=== PATIENT | male | born 1995 | race Caucasian/White ===

== ENCOUNTER → 2017-02-11 | Outpatient (CLI) | payer OTHER ==
[~2017-02-11] MED LIST: ACET-1256 PO; CEPH500C PO; HYDR-5688 PO; LOSA100T65 PO
--- NOTE | 2017-02-11 09:06 | DIAGNOSTIC IMAGING REPORT ---
RIGHT ANKLE MIN 3 VIEWS CLINICAL HISTORY: Right ankle pain COMPARISON: None. DISCUSSION: There is a spur arising from the anterior aspect the tibial plafond and medial malleolus. No acute fractures are visualized. The ankle mortise appears intact. IMPRESSION: Chronic spurring. No acute fractures. Electronically signed by: Delfin Albarran M.D. 02/11/2017 9:05 AM Dictated Date/Time: 02/11/2017 9:03 AM
== END | disposition home or self-care (01) ==
LOC: C.RDSM 09:15
PROVIDERS: ATTEND Physician Assistant
DX: M25.571 Pain in right ankle and joints of right foot (principal)

== ENCOUNTER 2017-07-01 15:46 | Emergency (ER) | payer OTHER ==
[~2017-07-01] VITALS: Ht 177.8 cm; Wt 115.3 kg
[2017-07-01 15:49] VITALS: TEMP 36.9; Ht 177.8 cm; Wt 115.3 kg
[2017-07-01] MEDS ORDERED: ACET-1256 PO (16:18)
[2017-07-01] MEDS ORDERED: LOSA100T65 PO (16:18)
[2017-07-01 16:31] LABS: BASO % 0.1 %; BASO ABS # 0.01 K/uL (0-0.2); COMPLETE YES; EOS % 2.1 %; HEMATOCRIT 39.6 % (42-52); IG% 0.3 %; LYMPH % 7.1 %; LYMPH ABS # 1.01 K/uL (1.2-3.4); MEAN CELL VOLUME 79.8 fL (80-100); MEAN CORPUSCULAR HEMOGLOBIN 27.8 pg (25-34); MEAN CORPUSCULAR HGB CONC 34.8 g/dl (32-36); MEAN PLATELET VOLUME 9.6 fL (7.4-10.4); MONO % 12.6 %; NEUT % 77.8 %; PLATELET COUNT 332 K/uL (130-400); RED BLOOD COUNT 4.96 M/uL (4.7-6.1); WHITE BLOOD COUNT 14.17 K/uL (4.8-10.8)
--- NOTE | 2017-07-01 16:36 | DIAGNOSTIC IMAGING REPORT ---
RIGHT SHOULDER MIN 2 VIEWS ROUTINE CLINICAL HISTORY: right shoulder pain Right pain COMPARISON: None DISCUSSION: . Postoperative changes to the glenoid. No acute bony abnormality. Acromioclavicular joint is intact. There are no abnormal soft tissue calcifications. There is no evidence for soft tissue swelling. IMPRESSION: No acute process. Mild degenerative/potential postoperative change to the glenoid articular surface The above report was generated using voice recognition software. It may contain grammatical, syntax or spelling errors. Electronically signed by: Quinton Edmonds M.D. 07/01/2017 4:34 PM Dictated Date/Time: 07/01/2017 4:33 PM
[2017-07-01 16:48] LABS: BUN/CREATININE RATIO 12.7 (10-20); CALCIUM 8.7 mg/dl (8.5-10.1); CREATININE 1.1 mg/dl (0.60-1.40); POTASSIUM 3.8 mmol/L (3.5-5.1); URIC ACID 8.1 mg/dl (2.6-7.2)
[2017-07-01 16:49] LABS: C-REACTIVE PROTEIN 12.9 mg/dl (0-0.29)
--- NOTE | 2017-07-01 17:01 | EMERGENCY ROOM VISIT NOTE ---
History First contact with patient: 15:54 Chief Complaint: SHOULDER PAIN Stated Complaint: SHOULDER PAIN History of Present Illness The patient is a 21 year old male who presents to the Emergency Room with complaints of right shoulder pain which began 5 days ago. The patient states that he has had worsening shoulder pain over the past 5 days. The pain is worse with movement of the shoulder. He rates his discomfort a 9/10. He has a history of IgA nephropathy and has been told in the past that his uric acid levels are elevated and he could develop a gout in the future. He is unsure if he has had an episode of gout in the past. He states that he has had an episode of ankle swelling and redness, but was told by a explosive operator that this was not due to gout. He was prescribed colchicine and took this without relief when his pain began. The patient also reports that he has had a torn labrum in the right shoulder and had surgery in 2011. He did have another episode of similar symptoms a few years ago and had an MRI which showed tendinitis. He followed up with rheumatology regarding that and was told that he may need the shoulder drained if this occurred again. The patient denies any redness or warmth of the shoulder. He has decreased range of motion due to pain. He denies any fevers/chills, chest pain, shortness of breath or neck pain. He denies any other joint pain. Review of Systems A complete 10 point review of systems was reviewed with the patient with pertinent positives and negatives as per history of present illness. All else were negative. Social History Smoking Status: Never Smoker Current/Historical Medications Scheduled Cephalexin Monohydrate (Keflex), 500 MG PO QID Losartan Potassium (Cozaar), 100 MG PO DAILY Scheduled PRN Acetaminophen (Tylenol), 1,000 MG PO Q6H PRN for Pain Hydrocodone/Acetaminophen 5MG/325MG (Sanders 5MG/325MG), 1-2 TABLET PO Q4H PRN for Pain Physical Exam Vital Signs Date Time Temp Pulse Resp B/P (MAP) Pulse Ox O2 Delivery O2 Flow Rate FiO2 07/01/17 18:45 105 20 120/78 98 07/01/17 17:08 113 18 138/89 97 Room Air 07/01/17 15:49 36.9 128 18 134/79 97 Room Air Physical Exam VITALS: Vitals are noted on the nurse's note and reviewed by myself. Vital signs stable. GENERAL: This is a 21-year-old male, in no acute distress, nondiaphoretic, well- developed well-nourished. HEART: Regular rate and rhythm without murmurs gallops or rubs. LUNGS: Clear to auscultation bilaterally without wheezes, rales or rhonchi. MUSCULOSKELETAL: No deformity of the right shoulder. There is no erythema or warmth of the shoulder. There is no significant tenderness to palpation. There is decreased range of motion throughout secondary to patient discomfort. Full passive range of motion of the shoulder. NEURO: Patient was alert and oriented to person place and time. Medical Decision & Procedures ER Provider Diagnostic Interpretation: RIGHT SHOULDER MIN 2 VIEWS ROUTINE CLINICAL HISTORY: right shoulder pain Right pain COMPARISON: None DISCUSSION: . Postoperative changes to the glenoid. No acute bony abnormality. Acromioclavicular joint is intact. There are no abnormal soft tissue calcifications. There is no evidence for soft tissue swelling. IMPRESSION: No acute process. Mild degenerative/potential postoperative change to the glenoid articular surface Laboratory Results 07/01/17 16:20 Red Blood Count 4.96, Mean Corpuscular Volume 79.8, Mean Corpuscular Hemoglobin 27.8, Mean Corpuscular Hemoglobin Concent 34.8, Mean Platelet Volume 9.6, Neutrophils (%) (Auto) 77.8, Lymphocytes (%) (Auto) 7.1, Monocytes (%) (Auto) 12.6, Eosinophils (%) (Auto) 2.1, Basophils (%) (Auto) 0.1, Neutrophils # (Auto ) 11.03, Lymphocytes # (Auto) 1.01, Monocytes # (Auto) 1.78, Eosinophils # (Auto ) 0.30, Basophils # (Auto) 0.01 07/01/17 16:20 Test 07/01/17 16:20 White Blood Count 14.17 K/uL (4.8-10.8) Red Blood Count 4.96 M/uL (4.7-6.1) Hemoglobin 13.8 g/dL (14.0-18.0) Hematocrit 39.6 % (42-52) Mean Corpuscular Volume 79.8 fL (80-100) Mean Corpuscular Hemoglobin 27.8 pg (25-34) Mean Corpuscular Hemoglobin Concent 34.8 g/dl (32-36) Platelet Count 332 K/uL (130-400) Mean Platelet Volume 9.6 fL (7.4-10.4) Neutrophils (%) (Auto) 77.8 % Lymphocytes (%) (Auto) 7.1 % Monocytes (%) (Auto) 12.6 % Eosinophils (%) (Auto) 2.1 % Basophils (%) (Auto) 0.1 % Neutrophils # (Auto) 11.03 K/uL (1.4-6.5) Lymphocytes # (Auto) 1.01 K/uL (1.2-3.4) Monocytes # (Auto) 1.78 K/uL (0.11-0.59) Eosinophils # (Auto) 0.30 K/uL (0-0.5) Basophils # (Auto) 0.01 K/uL (0-0.2) RDW Standard Deviation 44.1 fL (36.4-46.3) RDW Coefficient of Variation 15.1 % (11.5-14.5) Immature Granulocyte % (Auto) 0.3 % Immature Granulocyte # (Auto) 0.04 K/uL (0.00-0.02) Erythrocyte Sedimentation Rate 67 mm/hr (0-14) Anion Gap 8.0 mmol/L (3-11) Est Creatinine Clear Calc Drug Dose 135.1 ml/min Estimated GFR () 110.6 Estimated GFR (Non- 95.5 BUN/Creatinine Ratio 12.7 (10-20) Uric Acid 8.1 mg/dl (2.6-7.2) Calcium Level 8.7 mg/dl (8.5-10.1) C-Reactive Protein 12.90 mg/dl (0-0.29) Medications Administered Medications (Trade) Dose Ordered Sig/Rylee Route Start Time Stop Time Status Last Admin Dose Admin Ceftriaxone Sodium (Rocephin Inj) 1 gm NOW STAT IV 07/01/17 17:44 07/01/17 17:45 DC 07/01/17 17:52 1 GM ED Course The patient was evaluated as above. Labs were drawn and IV access was obtained. Patient refused analgesics. Case was discussed with Dr. Quintanilla of orthopedics. He recommended giving the patient a dose of Rocephin and placing him on Keflex. He will follow-up with the patient in the office tomorrow. Patient was reevaluated and findings were discussed. 1 g Rocephin was ordered. Discharge instructions were reviewed with the patient. The patient verbalized understanding of my assessment and treatment plan and was discharged home in good condition. Medical Decision Differential diagnosis includes rotator cuff injury, tendinitis, gout, pseudogout, septic arthritis, among others. The patient is a 21-year-old male who presents today complaining of atraumatic right shoulder pain. The patient has a history of IgA nephropathy and has had apparent flareups of joint pain in the past. Labs were performed today and did show an elevated white blood cell count of 14,000. ESR was elevated at 67 and CRP elevated at 12.9. Creatinine was within normal limits. On exam, patient has significantly decreased range of motion but there is no erythema or warmth to suggest infection. Patient is afebrile. He is tachycardic, but feel this is likely secondary to pain. The patient declined any analgesics in the emergency department. Although there is no obvious evidence of a septic joint on exam, I am concerned due to the leukocytosis and elevated inflammatory markers. I spoke with Dr. Quintanilla of orthopedics, who recommended giving the patient a dose of Rocephin and placing him on Keflex and having him follow-up in the office tomorrow morning. I do feel this is a reasonable treatment plan. The patient does need further workup from orthopedics and may need aspiration of the joint for analysis. I had a lengthy discussion with both patient and his mother via telephone regarding the findings today and treatment plan. They both verbalized understanding of the assessment and treatment plan. Based on the patient's presentation and work up, I feel the patient is stable for outpatient treatment. The patient was educated to return to the emergency department for any worsening of their current condition or new/concerning symptoms. He will follow up with orthopedics tomorrow morning. The patient's case was reviewed with Dr. Ferraro, ED attending physician, who agreed with my assessment and treatment plan. Blood Pressure Screening: Patient was found to have a slightly elevated blood pressure due to circumstances. I do not believe that the patient requires hypertension monitoring. Medication reconciliation: I attest that I have personally reviewed the patient 's current medication list. Impression Primary Impression: Right shoulder pain Departure Information Dispostion Home / Self-Care Condition GOOD Prescriptions Hydrocodone/Acetaminophen 5MG/325MG (Sanders 5MG/325MG) Tab 1-2 TABLET PO Q4H Y for Pain, #12 TAB For Initial Treatment Prov: Amina Sanders PA-C 07/01/17 Cephalexin Monohydrate (Keflex) 500 Mg Cap 500 MG PO QID for 10 Days, #40 CAP Prov: Amina Sanders PA-C 07/01/17 Referrals No Doctor, Assigned (PCP) Leland Quintanilla, DO Patient Instructions My [facility] Additional Instructions You were prescribed Keflex to be taken 4 times daily as prescribed. This is an antibiotic. All antibiotics have the potential to cause diarrhea. Stop this medication and contact a medical provider if you were to develop any significant adverse side effects including: wheezing, shortness of breath, passing out, vomiting, or a diffuse rash. Always take antibiotics as directed and COMPLETE the ENTIRE course regardless of the improvement of your symptoms. You have been prescribed Sanders to be used for pain control. Take 1-2 tablets every 4-6 hours as needed for pain. This is a narcotic medication. You cannot drive or consume alcohol while on this medicine. This medicine should only be used for pain that cannot be controlled with [id number] pain medicines. You have been provided with the information for orthopedics. Call this number tomorrow morning at 8:00 AM to schedule follow-up. Let them know that you were seen in the emergency department and we spoke with Dr Quintanilla, who requested that you be seen tomorrow in the office. You may ask to speak with his ophthalmic medical assistant, Prerna. Return to the emergency department with any fevers, worsening pain, redness/ swelling or any other new/concerning symptoms. Problem Qualifiers Primary Impression: Right shoulder pain Chronicity: acute Qualified Codes: M25.511 - Pain in right shoulder
[2017-07-01] MEDS ORDERED: CEFTRIAXONE SOD INJ 1 GM ADDVIAL IV STA (17:44)
[2017-07-01] MEDS ORDERED: HYDR-5688 PO (18:16)
[2017-07-01] MEDS ORDERED: CEPH500C PO (18:16)
[2017-07-01 18:45] VITALS: BP 120/78; PULSE 105; O2SAT 98
== END 2017-07-01 18:46 | disposition home or self-care (01) ==
LOC: C.EDB 15:48
DX: M25.511 Pain in right shoulder (principal)

== ENCOUNTER → 2017-07-03 | Outpatient (CLI) | payer OTHER ==
--- NOTE | 2017-07-03 12:48 | DIAGNOSTIC IMAGING REPORT ---
RIGHT SHOULDER ASPIRATION UNDER FLUOROSCOPIC GUIDANCE CLINICAL HISTORY: Acute right shoulder pain. PROCEDURE: The risks, benefits, and alternatives to the procedure were discussed with the patient. Written informed consent was obtained. The patient was placed supine on the fluoroscopy table, and a right shoulder aspiration was performed under fluoroscopic guidance. The area was prepped and draped in the usual sterile fashion. The skin and soft tissues anesthetized with local 1% lidocaine. The right shoulder joint was accessed utilizing a 22-gauge needle. Aspiration was attempted, and no fluid was returned. A small volume of Optiray 300 was then injected into the joint space to confirm intra-articular positioning. Saline was then injected into the joint space with minimal fluid aspirated. The needle was repositioned and this was performed twice. Only minimal fluid could be aspirated from the joint following saline injection. The procedure was well tolerated and without immediate complication. The patient left the department in satisfactory condition. FLUOROSCOPY TIME: 15 seconds. IMPRESSION: Aspiration of the right shoulder under fluoroscopic guidance. No joint fluid was obtained. A small volume of injected and reaspirated saline was sent for laboratory analysis. Electronically signed by: Sonny Cortes M.D. 07/03/2017 12:47 PM Dictated Date/Time: 07/03/2017 12:45 PM
== END | disposition home or self-care (01) ==
LOC: C.RADBC 09:50
PROVIDERS: ATTEND Orthopaedic Surgery
DX: M25.511 Pain in right shoulder (principal)

== ENCOUNTER → 2017-07-28 | Outpatient (CLI) | payer OTHER ==
[~2017-07-28] MED LIST changes: -CEPH500C PO
--- NOTE | 2017-07-28 20:32 | DIAGNOSTIC IMAGING REPORT ---
R UPPER EXT JOINT WITHOUT CLINICAL HISTORY: 21 years-old Male with RIGHT SHOUDLER SYNOVITIS. Acute right shoulder weakness and pain with limited range of motion. No reported trauma. History of prior right shoulder aspiration. COMPARISON: Right shoulder radiographs 07/01/2017. TECHNIQUE: Multiplanar, multi sequence MRI of the right shoulder was performed without intravenous contrast. FINDINGS: ROTATOR CUFF: High-grade partial thickness articular sided tear is seen involving the anterior insertional fibers of the supraspinatus tendon, 5 x 8 mm in transverse and AP dimension as seen on image 15 of series 9 and image 3 of series 8. There is background moderate to severe supraspinatus tendinosis with fluid tracking along the supraspinatus myotendinous junction. There is mild tendinosis of the infraspinatus tendon. Low-grade partial-thickness articular sided tear involves the posterior insertional fibers of infraspinatus tendon, 6 x 4 mm in AP and transverse dimension as seen on image 6 of series 8 and image 6 of series 9. There is underlying moderate bone marrow edema and subcortical cystic change of the posterior facet greater tuberosity. The infraspinatus tendon is intact. There is moderate subscapularis tendinosis without high-grade partial or full-thickness subscapularis tear identified. BICEPS TENDON: There is moderate long head biceps tendinosis with moderate to extensive fluid along the biceps tendon compatible with paratenonitis. There is short segment split tear of the long head biceps tendon measuring approximately 2.0 cm in craniocaudal dimension beginning just proximal and ending just distal to the intertubercular groove as seen on image 15 of series 9. LABRUM: There is evidence of prior labral repair. Areas of linear increased T2 signal of the mid and superior portions of the posterior labrum suggesting re-tear are seen on image 9 of series 4 and image 11 of series 4 and also image 10 of series 9 and also possibly on image 14 of series 4 involving the inferior labrum. No definite paralabral cyst or displaced fragment. GLENOHUMERAL JOINT: Moderate to large joint effusion with synovitis. Mild chondral thinning is seen at multiple sites within the glenohumeral joint. No definite intra-articular loose body identified. ACROMIOCLAVICULAR JOINT: Severe subacromial/subdeltoid bursitis. Mild degenerative changes of the AC joint with marginal spurring. The acromion has a flat gently curved undersurface. OUTLET SPACES: The suprascapular notch and quadrilateral space are without obstructing or space occupying lesions. BONE MARROW: No focal abnormality, fracture or marrow occupying lesion. Bone marrow edema and subcortical cystic changes of the humerus as above. SOFT TISSUES: Mild intramuscular edema of the supraspinatus as seen on image 13 of series 9 and image 22 of series 8. IMPRESSION: 1. Acute high-grade partial-thickness articular sided tear of the anterior insertional fibers of the supraspinatus tendon, 5 x 8 mm with background moderate to severe tendinosis. Mild intramuscular edema of the supraspinatus is likely reactive. 2. Mild tendinosis of the infraspinatus tendon with low-grade partial-thickness articular sided tear of the posterior insertional fibers. 3. Moderate long head biceps tendinosis with associated biceps paratenonitis and 2.0 cm short segment split tear of the long head biceps tendon as above. 4. Prior labral repair. Probable re-tear of the posterior labrum as above. 5. Severe subacromial/subdeltoid bursitis. Moderate to large joint effusion with synovitis. The above report was generated using voice recognition software. It may contain grammatical, syntax or spelling errors. Electronically signed by: Freeman Roman M.D. 07/28/2017 8:31 PM Dictated Date/Time: 07/28/2017 3:53 PM
== END | disposition home or self-care (01) ==
LOC: C.MRIBC 14:59
PROVIDERS: ATTEND Orthopaedic Surgery
DX: M75.111 Incomplete rotator cuff tear or rupture of right shoulder, not specified as traumatic (principal); M65.811 Other synovitis and tenosynovitis, right shoulder; M75.51 Bursitis of right shoulder